=== PATIENT | male | born 1995 ===

== ENCOUNTER 2023-02-16 08:55 | Day surgery (SDC) | payer OTHER ==
[~2023-02-16] VITALS: Ht 182.9 cm; Wt 84.5 kg
[2023-02-16] MEDS ORDERED: Calcium Carbon500 MG PO (10:02)
--- NOTE | 2023-02-16 11:27 | NUR ---
02/16/23 1127 TOMMY ROWAN REGULAR BREATHING. SNORING LOUDLY, LUNGS SOUNDS APPEAR TO BE CLEAR AT THIS TIME. PT PLACED ON O2 OCCLUDING- 10L VIA FACE TENT. ORAL AIRWAY STILL IN PLACE.
--- NOTE | 2023-02-16 11:47 | NUR ---
02/16/23 1147 TOMMY ROWAN PAIN OFF/ON SHARP- DEEP PAIN. 10 AT THE WORST.
[2023-02-16 12:25] VITALS: BP 119/42
== END 2023-02-16 12:45 | disposition home or self-care (01) ==
LOC: ORSCSDS 08:55
PROVIDERS: Orthopaedic Surgery
PROC: 0JCK0ZZ Extirpation of Matter from Left Hand Subcutaneous Tissue and Fascia, Open Approach (ICD-10-PCS; principal; 2023-02-16 10:15)
DX: Z18.9 Retained foreign body fragments, unspecified material (principal); W45.8XXA Other foreign body or object entering through skin, initial encounter
CPT/HCPCS: A9270; J0690; J1100; J2250; J2405; J3010; J7120